=== PATIENT | male | born 1985 | race Caucasian/White ===

== ENCOUNTER 2023-05-10 21:53 | Emergency (ER) | payer SELFPAY ==
[2023-05-10] MEDS ORDERED: Sodium Chloride 0.9% 1,000 ML IV ONE (22:07)
[2023-05-10] MEDS ORDERED: LORazepam 1 MG Tab PO ONE (22:07)
[2023-05-10 22:41] LABS: BASOPHILS ABSOLUTE AUTO 0.08 K/uL (0.00-0.20); BASOPHILS PERCENT AUTO 0.8 % (0.0-1.0); EOSINOPHILS ABSOLUTE AUTO 0.26 K/uL (0.00-0.45); EOSINOPHILS PERCENT AUTO 2.7 % (0.0-6.0); HEMATOCRIT 48.3 % (42.0-52.0); HEMOGLOBIN 16.9 g/dL (14.0-18.0); IMMATURE GRAN ABSOLUTE AUTO 0.03 K/uL (0.00-0.05); IMMATURE GRAN PERCENT AUTO 0.3 % (0.0-0.4); LYMPHOCYTES ABSOLUTE AUTO 2.28 K/uL (1.00-4.80); LYMPHOCYTES PERCENT AUTO 23.6 % (24.0-44.0); MEAN CORPUSCULAR VOLUME 80.1 fL (83.0-99.0); MONOCYTES ABSOLUTE AUTO 0.63 K/uL (0.00-0.80); MONOCYTES PERCENT AUTO 6.5 % (0.0-8.0); NEUTROPHILS ABSOLUTE AUTO 6.39 K/uL (1.80-7.70); NEUTROPHILS PERCENT AUTO 66.1 % (41.0-71.0); PLATELET COUNT,PLT 255 K/uL (150-400); RED BLOOD CELL COUNT 6.03 M/uL (4.52-5.90); WHITE BLOOD CELL COUNT,WBC 9.67 K/uL (3.9-11.3)
[2023-05-10 22:43] LABS: AMPHETAMINES SCREEN, URINE NEGATIVE (CUTOFF=500); BARBITURATE SCREEN,URINE NEGATIVE (CUTOFF=200); BENZODIAZEPINES SCREEN,URINE NEGATIVE (CUTOFF=150); BUPRENORPHINE SCREEN,URINE NEGATIVE (CUTOFF=10); METHADONE SCREEN, URINE NEGATIVE (CUTOFF=200); METHAMPHETAMINES SCREEN, URINE NEGATIVE (CUTOFF=500); OXYCODONE SCREEN,URINE NEGATIVE (CUT0FF=100); PCP SCREEN,URINE NEGATIVE (CUTOFF=25); PROPOXYPHENE SCREEN,URINE NEGATIVE (CUTOFF=300); THC SCREEN,URINE 20 NG/ML NEGATIVE (CUTOFF=50)
[2023-05-10 22:49] LABS: INR 1.04 (0.86-1.11)
[2023-05-10 23:11] LABS: A/G RATIO 1.1 (0.9-1.6); ALBUMIN 4.3 g/dL (3.4-5.0); BILIRUBIN TOTAL 0.4 mg/dL (0.2-1.0); CALCIUM 9.2 mg/dL (8.5-10.1); CARBON DIOXIDE,CO2 26.7 mmol/L (21.0-32.0); CREATININE 1.4 mg/dL (0.8-1.3); EST CRCL DRUG DOSING (CG) 65.19 mL/min; POTASSIUM,K 3.5 mmol/L (3.5-5.1); PROTEIN TOTAL,TP 8.1 g/dL (6.4-8.2); TSH ULTRASENSITIVE 2.67 uIU/mL (0.36-3.74)
== END 2023-05-11 00:04 | disposition home or self-care (01) ==
LOC: MW.ED 21:53 → MERGE 21:53 → MW.ED 05-11 00:04
DX: R00.2 Palpitations (principal)
CPT/HCPCS: 36415; 80053; 80305; 84443; 84484; 85025; 85379; 85610; 93005; 96360; 99285; A9270; J7030; 93010; 99282